=== PATIENT | male | born 1995 | race Caucasian/White ===

== ENCOUNTER 2016-11-04 20:09 | Emergency (ER) | payer OTHER ==
[~2016-11-04] VITALS: Ht 165.1 cm; Wt 65.8 kg
[~2016-11-04 20:09] MED LIST: AUGMENTIN 875-1 EACH PO; LANTUS100 UNIT/1 SUB-Q; LANTUS100 UNITS/ SUB-Q; NOVOLOG100 UNITS/ IV; NOVOLOG100 UNITS/ SUB-Q; PROVENTIL HFA6.7 GM INH; TESSALON PERLE100 MG PO
[2016-11-04] MEDS ORDERED: NOVOLOG100 UNIT/2 SUB-Q (20:53)
== END 2016-11-04 21:03 | disposition home or self-care (01) ==
LOC: ED 20:09
DX: Z76.0 Encounter for issue of repeat prescription (principal); E10.9 Type 1 diabetes mellitus without complications; Z79.4 Long term (current) use of insulin; Z88.1 Allergy status to other antibiotic agents
CPT/HCPCS: 99283

== ENCOUNTER 2017-03-03 14:21 | Inpatient (IN) | payer OTHER ==
[~2017-03-03] VITALS: Ht 165.1 cm; Wt 61.7 kg
[~2017-03-03 14:21] MED LIST changes: +NOVOLOG100 UNIT/2 SUB-Q
[2017-03-03] MEDS ORDERED: HUMALOG100 UNITS/ IV (14:33)
[2017-03-03] MEDS ORDERED: LANTUS100 UNITS/ SUB-Q (14:34)
--- NOTE | 2017-03-03 18:08 | NUR ---
PATIENT ARRIVES TO CCU AROUND 1725 FROM ER VIA STRETCHER. PT ABLE TO MOVE SELF OVER TO CCU BED. PATIENT STATES HE HAS BEEN SICK FOR A FEW DAYS, BUT RAN OUT OF INSULIN YESTERDAY. PT DID NOTE THAT THE LANTUS HE RAN OUT OF WAS OLD INSULIN AND HE WAS QUESTIONING WHETHER OR NOT IT WAS GOOD INSULIN STILL. PATIENT ABLE TO ANSWER ALL QUESTIONS APPROPRIATELY. LAST CBG PER YAMEL IN ER WAS 246. CBG AT 1800 WAS 166. UPON ARRIVAL TO UNIT, INSULIN GTT INFUSING AT 3.4 UNITS/HR AND 1/2 NS INFUSING AT 200 ML/HR. PATIENT VOIDS [address] BUCHANAN CALLED AND UPDATED WITH MOST RECENT BLOOD SUGAR AND IVF TO BE CHANGED. CONTINUE TO MONITOR.
--- NOTE | 2017-03-03 19:40 | NUR ---
REPORT RECEIVED FROM CATARINO TORREZ. PT IS SITTING UP IN BED WATCHING TV. DENIES NAUSEA OR PAIN, STATES HE IS FEELING MUCH BETTER THAN EARLIER. DRINKING WATER AND EATING ICE CHIPS. INSULIN DRIP IS INFUSING AT 0.9 UNITS/HR, IVF ARE D51/2NS INFUSING AT 200ML/HR.
--- NOTE | 2017-03-03 20:00 | NUR ---
ASSESSMENT DONE. PT CONTINUES TO DENY PAIN OR NAUSEA.
--- NOTE | 2017-03-03 21:00 | NUR ---
PT CALLS TO ASK ABOUT MOST RECENT LAB VALUES, STATES THAT HE CANNOT AFFORD TO STAY IN THE HOSPITAL AND IS PLANNING ON LEAVING DEPENDING ON HIS NEXT SET OF LABS. DR BUCHANAN NOTIFIED. RISKS OF LEAVING AMA AND EXPLAINED TO PT, PT STATES HE UNDERSTANDS RISKS, AND WILL SIGN AMA PAPERWORK WHEN HE DECIDES TO LEAVE.
--- NOTE | 2017-03-03 21:27 | NUR ---
LAST BLOOD SUGAR WAS 206, INSULIN DRIP TURNED UP TO 4.2 UNITS/HR. PT AWAKE SITTING UP IN BED WATCHING TV AND DRINKING WATER.
--- NOTE | 2017-03-03 22:20 | NUR ---
PT STILL INSISTENT UPON LEAVING AMA. FRIENDLY AND COOPERATIVE STATES "I CANT AFFORD TO BE HERE." RISKS OF WORSENING DKA EXPLAINED TO PT AND PT FULLY AWARE. STATES HE WILL BE CHECKING HIS BLOOD SUGARS AT HOME AND WILL HAVE A FRIEND STAY WITH HIM TONIGHT AND TOMORROW. INDUSTRIAL ORGANIZATIONAL PSYCHOLOGIST IN TO TALK WITH PT. PT SIGNS AMA FORM, IVS X2 DC'D WITH TIPS INTACT. DR BUCHANAN AWARE. PT ESCORTED OUT WITH SCHOOL CLEANER TO FRIEND WHO WAS WAITING FOR HIM.
== END 2017-03-03 22:24 | disposition left against medical advice (07) | DRG 639 ==
LOC: ED 14:21 → CCU 16:04
PROVIDERS: ADMIT Internal Medicine
DX: E10.10 Type 1 diabetes mellitus with ketoacidosis without coma (principal); F17.200 Nicotine dependence, unspecified, uncomplicated; F12.10 Cannabis abuse, uncomplicated
CPT/HCPCS: 80048; 80053; 81001; 82010; 82800; 85025; 96361; 96374; 96375; 96376; 99285; J1650; J2405; J7030; J7042

== ENCOUNTER 2017-03-04 11:32 | Observation (INO) | payer OTHER ==
[~2017-03-04] VITALS: Ht 165.1 cm; Wt 61.7 kg
[~2017-03-04 11:32] MED LIST changes: +HUMALOG100 UNITS/ IV
--- NOTE | 2017-03-04 13:58 | NUR ---
GOT PATIENT SETTLED INTO ROOM AND HOOKED UP ONTO TELE #9. VS TAKEN.
--- NOTE | 2017-03-04 13:59 | NUR ---
IV SITE INTACT, NO REDNESS OR SWELLING NOTED, PT DENIES PAIN AT SITE. PT DENIES PAIN, NAUSEA, AND SOB IN GENERAL. PT CURRENTLY STANDING AT THE SINK BRUSHING TEETH.
--- NOTE | 2017-03-04 17:14 | NUR ---
CALLED WITH CRITICAL VALUE FOR CARBON DIOXIDE OF 9. ORDER MARYURI TO ADVANCE PT TO ADA DIET.
--- NOTE | 2017-03-04 17:55 | NUR ---
PT ABLE TO JONATHAN 100% OF HIS ADA DINNER. PT DENIES NAUSEA.
--- NOTE | 2017-03-04 18:43 | NUR ---
pt able to ambulate independently, uses the call light appropriatly. pt denies nausea all shift. pt able to rachel reg ada dinner of cheeseburger, salad, cottage cheese, and suger-free cake. pt denies pain and sob. pt is cooperative and polite. pt states "I was a dumbass last night, and I'm sorry. I will stay as long a I need to this time." discussed some diabetic education for type 1 dm, ex: insulin pumps, the function of long acting insulin, keto-sticks to self-test for keytones, and po zofran for home use, pt receptive.
--- NOTE | 2017-03-04 19:45 | NUR ---
PT SHIFT REPORT RECIVED FROM DAY SHIFT RN. PT IS RESTING IN BED AND INDEPENDENT IN THE ROOM. PT CALLS APPROPRIATELY. WILL CONTINUE TO CLOSELY MONITOR.
--- NOTE | 2017-03-04 20:00 | NUR ---
PT BS 290. PER INSULIN GTT SCALE THE GTT RATE WAS TURNED TO 5ML/HR. LEVIMIR ADMINISTERED. NO OTHER ISSUES AT THIS TIME. FRIEND AT BEDSIDE VISITING.
--- NOTE | 2017-03-04 21:15 | NUR ---
PT BLOOD SUGAR 255. PER SLIDING SCALE GTT TURNED TO 4.2 ML/HR. LAB IN TO GET EVENING LABS. WILL CONTINUE TO MONITOR.
--- NOTE | 2017-03-04 22:15 | NUR ---
PT BLOOD SUGAR 200. INSULING GTT TURNED TO 2.8 PER PROTOCOL. WILL CONTINUE TO MONITOR.
--- NOTE | 2017-03-05 00:24 | NUR ---
PER MD TURN OFF NS FLUIDS AND LEAVE OTHER FLUIDS AT CURRENT RATE.
--- NOTE | 2017-03-05 02:03 | NUR ---
BLOOD SUGAR 246, WILL TITRATE INSULIN DRIP UP. LAB IN TO DRAW. PT DENIES NEEDS AT THIS TIME.
--- NOTE | 2017-03-05 02:16 | NUR ---
PT LABS DONE. PT RESTING IN BED. WILL CONTINUE TO CLOSELY MONITOR. PT HAD SNACK ABOUT AN HOUR AGO AND PT BLOOD SUGAR HIGHER THIS HOUR. WILL CONTINUE TO MONITOR.
--- NOTE | 2017-03-05 04:26 | NUR ---
PT VITALS DONE. PT BS 154 AND GTT TURNED TO 1ML/HR. PT DENIES ANY ISSUES AT THIS TIME. WILL CONTINUE TO CLOSELY MONITOR.
--- NOTE | 2017-03-05 05:18 | NUR ---
PT BLOOD SUGAR 125. PT REQUESTING FOOD. GAVE PT A SANDWICH BOX. NO OTHER ISSUES AT THIS TIME.
--- NOTE | 2017-03-05 08:25 | NUR ---
IV SITES INTACT, NO REDNESS OR SWELLING NOTED, PT DENIES PAIN AT EITHER SITE, FLUIDS INFUSING EASILY. PT DENIES PAIN, NAUSEA, AND SOB. PT IS ALERT AND ORIENTED X4, COOPERAITVE AND POLITE. PT ABLE TO AMBULATE INDEPENDENTLY. VITALS WNL. PT ON INSULIN DRIP AT 2.5 UNITS/HR.
--- NOTE | 2017-03-05 08:41 | NUR ---
OFFRED PT AM CARE. DENIES AT THIS TIME. PT STATES HE WILL GET UP IN A LITTLE BIT TO BRUSH HIS TEETH. LINEN CHANGE DONE BY LORE LINDSAY.
--- NOTE | 2017-03-05 08:45 | NUR ---
RN AWARE OF PT'S HIGH BLOOD SUGAR.
--- NOTE | 2017-03-05 09:33 | NUR ---
Patient uses Humalog and Lantus. He feels that he had better control while using Novolog (vs Humalog)
--- NOTE | 2017-03-05 10:15 | NUR ---
PT BLOOD SUGAR IS 125. CALLED TO UPDATE HER ON PT STATUS. ORDER GIVEN TO STOP INSULIN DRIP. PT DENIES NAUSEA, STATES "I FEEL 100% BETTER".
--- NOTE | 2017-03-05 12:10 | NUR ---
DISCUSSED PLAN TO D/C PT TO HOME AFTER LUNCH, ALL PT QUESTIONS ANSWERED. PT IV SITES INTACT, NO REDNESS OR SWELLING NOTED, PT DENIES PAIN AT EITHER SITE. PT DENIES PAIN, NAUSEA, AND SOB IN GENERAL. PT ALERT AND ORIENTED X4, AMBULATES FREQUENTLY AND INDEPENDENTLY.
[2017-03-05] MEDS ORDERED: ZOFRAN ODT4 MG PO (13:13)
== END 2017-03-05 14:20 | disposition home or self-care (01) ==
LOC: ED 11:32 → CCU 11:34
PROVIDERS: ADMIT Internal Medicine
DX: E10.10 Type 1 diabetes mellitus with ketoacidosis without coma (principal); E86.0 Dehydration; Z88.1 Allergy status to other antibiotic agents
CPT/HCPCS: 36415; 80048; 80053; 82010; 82800; 84100; 85025; 96361; 96372; 96374; 96375; 96376; 99285; G0378; J1650; J2405; J7030

== ENCOUNTER 2018-08-03 01:43 | Emergency (ER) | payer OTHER ==
[~2018-08-03] VITALS: Ht 165.1 cm; Wt 68.0 kg
[~2018-08-03 01:43] MED LIST changes: +ZOFRAN ODT4 MG PO
--- OUTSIDE RECORDS SUMMARY | 2018-08-03 01:46 | XMS ---
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 EMaria Liusa VISIT COUNT (12 MO.) 1 [facility] [place] TOTAL 1 NOTE: Visits indicate total known visits. ED/UCC VISIT TRACKING (12 MO.) 08/03/2018 01:44 [facility] [place] [place] TYPE: Emergency COMPLAINT: - BLOOD SUGAR CONCERN INPATIENT VISIT TRACKING (12 MO.) No inpatient visits to display in this time frame [email or web address]
[2018-08-03] MEDS ORDERED: LEVEMIR100 UNIT/1 SUB-Q (01:52)
== END 2018-08-03 02:08 | disposition home or self-care (01) ==
LOC: ED 01:43
DX: Z00.01 Encounter for general adult medical examination with abnormal findings (principal); E10.9 Type 1 diabetes mellitus without complications; Z88.1 Allergy status to other antibiotic agents
CPT/HCPCS: 99283

== ENCOUNTER 2019-02-01 17:35 | Emergency (ER) | payer SELFPAY ==
[~2019-02-01] VITALS: Ht 165.1 cm; Wt 61.2 kg
[~2019-02-01 17:35] MED LIST changes: +LEVEMIR100 UNIT/1 SUB-Q
--- OUTSIDE RECORDS SUMMARY | 2019-02-01 17:38 | XMS ---
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 Care History Medical/Surgical 08/03/2018 [facility] - Patient is currently established with [facility]. If patient is seen in the ED during business hours. Please contact CHWs at [facility]. Care Recommendation: This patient has had 5 or more Emergency Department visits in the last 12 months.\T\nbsp; Patient requires education on the scope and purpose of the ED as an acute care provider not a Primary Care Provider and should not be utilized for chronic conditions.\T\nbsp; These are guidelines and the provider should exercise clinical judgment when providing care. E.D. VISIT COUNT (12 MO.) 2 [facility] [place] TOTAL 2 NOTE: Visits indicate total known visits. ED/UCC VISIT TRACKING (12 MO.) 02/01/2019 17:36 [facility] [place] [place] TYPE: Emergency COMPLAINT: - ANXIETY ISSUE 08/03/2018 01:44 [facility] [place] TYPE: Emergency COMPLAINT: - BLOOD SUGAR CONCERN DIAGNOSES: - 1 Type 1 diabetes mellitus without complications - Allergy status to other antibiotic agents status - Encounter for general adult medical exam w abnormal findings INPATIENT VISIT TRACKING (12 MO.) No inpatient visits to display in this time frame [email or web address]
[2019-02-01] MEDS ORDERED: HYDROXYZINE HCL25 MG PO (19:08)
== END 2019-02-01 19:17 | disposition home or self-care (01) ==
LOC: ED 17:35
DX: F41.0 Panic disorder [episodic paroxysmal anxiety] (principal); E10.9 Type 1 diabetes mellitus without complications; Z87.891 Personal history of nicotine dependence; Z88.1 Allergy status to other antibiotic agents
CPT/HCPCS: 99283